=== PATIENT | female | born 1990 | race Caucasian/White ===

== ENCOUNTER 2023-06-02 03:55 | Inpatient (IN) ==
[2023-06-02] MEDS ORDERED: Patient's ALLERGY Info needs ENTERED SCH ×2 (04:00→04:15)
[2023-06-02] MEDS ORDERED: LIDOCAINE 1% LOCAL 20 ML VIAL INFIL PRN (04:04)
[2023-06-02] MEDS ORDERED: LACTATED RINGER'S 1,000 ML IV PRN (04:04)
[2023-06-02] MEDS ORDERED: OXYTOCIN 30 UNITS/500 ML BAG IV PRN ×2 (04:04→06:11)
--- NOTE | 2023-06-02 04:12 | History & Physical Report ---
Date of Service June 02, 2023 Assessment & Plan (1) Active labor at term: Plan: 32 yo at 40.1 wks in active labor with plan Diet control GDMA1 on knee chest Admit, monitor, IV site, anticipate (2) Gestational diabetes mellitus (GDM): History of Present Illness Primary Care Provider: Rudy Branch MD Patient is a 32 yo at 40.1 wks who came in in active labor, fully dilated. Ctxs started around 10: 30 last night, no LOF, blood show at 01: 30 am No problems during this except GDMA1 She has plan, declines epidural and lying on bed, she wants to deliver on knee chest GBS neg Review of Systems as per Subjective / HPI Physical Exam Constitutional: WD/WN, vitals as above Genitourinary: normal external appearance OB Exam Abdomen: + vertex Man ual OB Exam: + cervical dilation 10 cm and + station 0 (unable tell due to her position, on knee chest) OB Exam Monitor Tracing: + category I
--- NOTE | 2023-06-02 04:43 | Obstetrical Progress Note ---
Date of Service June 02, 2023 Subjective Patient is now on her back/half sitting position and pushing with each contractions VE; 10/100%/ +1, bulging bag, declined AROM FHR 140-150's, unable to trace continuously due to her position changes Continue to monitor closely and pushing Results & Data Vital Signs (Past 12 Hours) Vital Signs Pulse BP 06/02/23 04:09 74 124/64
[2023-06-02 04:47] LABS: Hematocrit (blood only) 36.9 % (37.0-47.0); Hemoglobin 12.7 g/dl (12.0-16.0); Mean Corpuscular Hemoglobin 31.4 pg (25.0-34.0); Mean Corpuscular Hgb Conc 34.4 g/dL (32.0-36.0); Mean Corpuscular Volume 91.1 fL (80.0-100.0); Mean Platelet Volume 12.7 fL (9.4-12.4); Platelet Count 215 K/uL (130-400); RDW Coefficient of Variation 13.3 % (11.5-14.5); RDW Standard Deviation 43.9 fL (36.4-46.3); Red Blood Count 4.05 M/uL (4.20-5.40); White Blood Count 15.17 K/ul (4.8-10.8)
[2023-06-02] MEDS ORDERED: LIDOCAINE 1% LOCAL 20 ML VIAL ONE (05:25)
[2023-06-02] MEDS ORDERED: MINERAL OIL 30 ML UDC ONE (05:26)
[2023-06-02] MEDS ORDERED: bisacodyL 10 MG SUPP PR PRN (06:11)
[2023-06-02] MEDS ORDERED: HYDROCORTISONE ACETATE 25 MG SUPP PR PRN (06:11)
[2023-06-02] MEDS ORDERED: IBUPROFEN 600 MG TAB PO PRN (06:11)
[2023-06-02] MEDS ORDERED: MEASLES, MUMPS & RUBELLA VIRUS VACCINE (MMR) VIAL SQ ONE (06:11)
[2023-06-02] MEDS ORDERED: oxyCODONE/ACETAMINOPHEN 5mg/325mg TAB PO PRN (06:11)
[2023-06-02] MEDS ORDERED: ACETAMINOPHEN 325 MG TAB PO PRN (06:11)
[2023-06-02] MEDS ORDERED: DIPHTHERIA/TETANUS/PERTUSSIS Vaccine (Tdap, Age 7+yrs) 0.5mL SYR/VL IM ONE (06:11)
--- NOTE | 2023-06-02 06:17 | Delivery Summary ---
Vaginal Delivery Summary Date of Service June 02, 2023 Vaginal Delivery Summary Patient was found to be fully dilated and desires to push when she presented to L&D. Amniotic bag was intact but she declined it ruptured. She pushed for about 1.5 hours and delivered the head within amniotic sac and then shoulders were delivered with minimal traction. The baby was handed off to the mother. She was vigorously moving and crying. The cord was clampedx2 and cut at 4 minute delay per moms request. The vagina and perineum were checked and found to have 1st degree perineal laceration at 6 o'clock and bilateral labial lacerations. Those was repaired with 3/0 vicryl until hemostasis was achieved. Lidocaine was used for LA. The placenta was delivered spontaneously as intact and complete. The uterus was explored and found to be empty. EBL was 300 ml. The fundus was firm The baby was a viable female , Apgars 8/9, the weight is pending. The mother and the baby tolerated the procedure well. No complications happened and I was present during whole procedure. The sponge instrument and needle count was correctx2.
[2023-06-02] MEDS: BENZOCAINE 20% SPRY 85 APPLN/85 GM CAN EXT PRN ×2 (06:39→10:58)
[2023-06-02] MEDS ORDERED: PRENATAL VITAMIN 1 TAB PO SCH (08:00)
[2023-06-02] MEDS: DOCUSATE SODIUM 100 MG CAP PO SCH (20:40)
[2023-06-03 06:40] LABS: Hematocrit (blood only) 27.1 % (37.0-47.0); Hemoglobin 9.3 g/dl (12.0-16.0); Mean Corpuscular Hemoglobin 31.4 pg (25.0-34.0); Mean Corpuscular Hgb Conc 34.3 g/dL (32.0-36.0); Mean Corpuscular Volume 91.6 fL (80.0-100.0); Mean Platelet Volume 12.8 fL (9.4-12.4); Platelet Count 190 K/uL (130-400); RDW Coefficient of Variation 13.9 % (11.5-14.5); RDW Standard Deviation 46.5 fL (36.4-46.3); Red Blood Count 2.96 M/uL (4.20-5.40); White Blood Count 14.56 K/ul (4.8-10.8)
--- NOTE | 2023-06-03 07:39 | Obstetrical Progress Note ---
Date of Service June 03, 2023 Assessment & Plan (1) Normal course: Plan: PPD #2 Pt doing well disch home with instructions Admission and Anticipated Discharge Date Admission Date: June 02, 2023 Results & Data Vital Signs (Past 12 Hours) Vital Signs Temp Pulse Resp BP Pulse Ox O2 Del Method 06/03/23 04:00 36.9 C 90 20 109/73 98 Room Air 06/02/23 23:35 37.0 C 86 20 124/77 98 Room Air 06/02/23 23:35 Room Air
[2023-06-03] MEDS: DOCUSATE SODIUM 100 MG CAP PO SCH (08:31)
[2023-06-03] MEDS: FERROUS SULFATE 325 MG TAB PO SCH ×2 (08:31)
[2023-06-03] MEDS ORDERED: bisacodyL 5 MG TABEC PO SCH (20:00)
== END 2023-06-03 14:17 | disposition home or self-care (01) | DRG 807 ==
LOC: OPB 03:55 → 4S1 04:02 → 4E2 09:59